=== PATIENT | male | born 1960 ===

== ENCOUNTER 2025-06-04 18:05 | Emergency (ER) | payer MEDICARE ==
[2025-06-04] MEDS: diphenhydrAMINE 50 MG/ML SDV IVPUSH ONE (18:41)
[2025-06-04] MEDS: Prochlorperazine 10 MG/2 ML SDV IVPUSH ONE (18:42)
[2025-06-04] MEDS: Dexamethasone 4 MG/ML SDV IVPUSH ONE (21:02)
== END 2025-06-04 22:15 | disposition home or self-care (01) ==
LOC: JP.ED 18:05
DX: R11.2 Nausea with vomiting, unspecified (principal); I10 Essential (primary) hypertension; E78.00 Pure hypercholesterolemia, unspecified; E03.9 Hypothyroidism, unspecified; F17.200 Nicotine dependence, unspecified, uncomplicated; Z79.890 Hormone replacement therapy; Z79.899 Other long term (current) drug therapy
CPT/HCPCS: 93005; 96361; 96374; 96375; 99283; 99284-25; A9270-GY; J0780; J1100; J1200; J2470; J7030